=== PATIENT | female | born 1985 | race Two or more races ===

== ENCOUNTER 2019-10-06 13:07 | Outpatient (CLI) | payer OTHER | END 2019-10-06 13:20 | disposition home or self-care (01) | LOC: SONOGRAMA 13:07 | PROVIDERS: ATTEND Obstetrics & Gynecology Obstetrics | DX: N64.4 Mastodynia (principal) ==

== ENCOUNTER 2019-12-01 14:01 | Outpatient (CLI) | payer OTHER | END 2019-12-01 14:08 | disposition home or self-care (01) | LOC: SONOGRAMA 14:01 → MAMO-SONO 14:15 | PROVIDERS: ATTEND Surgery | DX: N61.0 Mastitis without abscess (principal); N60.11 Diffuse cystic mastopathy of right breast; N60.12 Diffuse cystic mastopathy of left breast ==

== ENCOUNTER 2022-09-20 08:48 | Outpatient (CLI) | payer OTHER | END 2022-09-20 08:54 | disposition home or self-care (01) | LOC: TOM 08:48 | PROVIDERS: ATTEND Otolaryngology | DX: J31.0 Chronic rhinitis (principal) ==

== ENCOUNTER 2024-05-24 08:05 | Emergency (ER) | payer OTHER ==
[~2024-05-24] VITALS: Ht 160 cm; Wt 63.0 kg
[2024-05-24 10:22] LABS: HEMATOCRIT 42.3 % (36.0-45.00); MEAN CELL VOLUME 91.2 fL (80.00-100.00); MEAN CORPUSCULAR HEMOGLOBIN 30.2 pg (27.00-32.0); MEAN CORPUSCULAR HGB CONC 33.1 g/dl (32.0-36.0); RED BLOOD COUNT 4.64 M/uL (4.00-6.00); RED CELL DISTRIBUTION WIDTH 13.6 % (11.5-14.5)
[2024-05-24 10:28] LABS: PLATELET COUNT 106 K/uL (150-450)
[2024-05-24 10:39] LABS: PH,URINE 5.5 (5.0-8.0); URINE APPEARANCE Cloudy; URINE BILIRRUBIN Negative (NEGATIVE); URINE BLOOD Negative; URINE COLOR Yellow; URINE GLUCOSE Negative (NEGATIVE); URINE LEUKOCYTE Negative; URINE NITRATE Negative; URINE PROTEIN Negative (NEGATIVE); URINE UROBILINOGEN 0.2 E.U./dl
[2024-05-24 10:40] LABS: URINE BACTERIA 4024.2 uL (0.0-1933); URINE EPITHELIAL CELLS 125.2 uL (0.0-38.8); URINE RBC 2.9 uL (0.0-20.8); URINE WBC 16.6 uL (0.0-23.2)
[2024-05-24 10:41] LABS: URINE CAST 0.14 uL (0.0-1.40); URINE KETONE 80 (NEGATIVE)
[2024-05-24 11:04] LABS: ALBUMIN 3.9 gm/dL (3.4-5.0); BILIRUBIN TOTAL 0.45 mg/dL (0.3-1.2); CALCIUM 9.2 mg/dL (8.5-10.1); CREATININE SERUM 0.71 mg/dL (0.55-1.02); GFR 91.64; GLOBULINA 3.4 G/DL (2.4-3.5); POTASSIUM 5.32 mEq/L (3.5-5.1); TOTAL PROTEIN 7.3 gm/dL (6.4-8.2)
[2024-05-24] MEDS ORDERED: ZOFRAN8 MG PO (11:11)
[2024-05-24] MEDS ORDERED: PEPCID AC20 MG PO (11:11)
[2024-05-24 11:23] LABS: TSH 0.778 uIU/mL (0.358-3.74)
[2024-05-24 11:26] LABS: HCG QUANTITATIVE < 1 mUI/mL (1-3)
== END 2024-05-24 11:22 | disposition home or self-care (01) ==
LOC: ER 08:05
PROVIDERS: General Practice
DX: R53.81 Other malaise (principal); A90 Dengue fever [classical dengue]; Z20.822 Contact with and (suspected) exposure to COVID-19; Z88.6 Allergy status to analgesic agent